=== PATIENT | male | born 1950 | race Caucasian/White ===

== ENCOUNTER 2016-11-28 09:23 | Emergency (ER) | payer OTHER ==
[2016-11-28 09:37] VITALS: BP 131/76; PULSE 71; RESP 16; TEMP 98.2; O2SAT 96
--- NOTE | 2016-11-28 10:02 | EDPHY ---
H & P Time Seen by Provider: 11/28/16 09:52 HPI/ROS: CHIEF COMPLAINT: Left hand laceration HISTORY OF PRESENT ILLNESS: 65-year-old male with up-to-date tetanus sustained accidental laceration to his left hand overlying the 4th MCP dorsal aspect when a piece of glass broke. Denies foreign body sensation. Occurred late last evening. No paresthesia. No motor deficit. PHYSICAL EXAM (Prior to examination, patient consented to physical exam, hands were washed and my usual and customary physical exam procedures followed) 1) GENERAL: Well-developed, well-nourished, alert and oriented. Appears to be in no acute distress. 2) HEAD: Normocephalic 3) HEENT: sclera anicteric 4) LUNGS: Breathing comfortably. 5) SKIN: left hand dorsal aspect overlying the 4th MCP 1.5 cm laceration well- demarcated superficial. 6) MUSCULOSKELETAL: extent function intact with no deficits 7) NEUROLOGIC: Full sensation two-point discrimination intact Constitutional: Initial Vital Signs Temperature (C) 36.8 C 11/28/16 09:32 Heart Rate 71 11/28/16 09:32 Respiratory Rate 16 11/28/16 09:32 Blood Pressure 131/76 H 11/28/16 09:32 O2 Sat (%) 96 11/28/16 09:32 O2 Delivery Mode Room Air Allergies/Adverse Reactions: No Known Allergies Allergy (Unverified 11/28/16 09:32) Home Medications: Medication Instructions Recorded NK [No Known Home Meds] 11/28/16 MDM/Departure - MDM Procedures: Procedure: Laceration repair. I explained the indications, risks and benefits for both laceration repair and anesthetic administration. Verbal consent was obtained from the patient . The laceration on the left hand was anesthetized using 0.5% bupivicaine with epinephrine . After anesthetic administered the patient was observed for a period of time and had no apparent adverse effects. The wound was cleaned, prepped, draped in normal sterile fashion and explored to its base. No foreign body seen, no foreign bodies palpated. There were no deep structures involved. No tendon injury was identified. The wound was repaired with 3 simple interrupted 5 O Prolene sutures. The wound repair was simple. The procedure was performed by myself. Patient has been informed that scarring will occur, although efforts have been made to minimize this. ED Course/Re-evaluation: This injury occurred from broken glass. I recommended x-ray to evaluate possible radiopaque foreign body. He declines this. He has been informed of the risks including, but not limited to, retained foreign body and nidus of infection. I believe him to have decision-making capacity. Wound has been cleansed, closed by myself. Usual and customary wound precautions instructions provided. - Depart Disposition: Home, Routine, Self-Care Clinical Impression: Laceration of left hand Qualifiers: Encounter type: initial encounter Foreign body presence: unspecified Qualified Code(s): S61.412A - Laceration without foreign body of left hand, initial encounter Condition: Good Instructions: Care For Your Stitches (ED), Laceration (ED) Additional Instructions: Return to the ER if you develop redness, swelling, discharge, warmth to the wound, red streaks going up your arm , or any other symptoms that concern you. You have declined an x-ray of your hand. He has been informed that a foreign body has not been ruled out and that this could serve as a source of infection. Referrals: Return, to the ER in 10 days [Other] - As per Instructions
== END 2016-11-28 10:50 | disposition home or self-care (01) ==
PROC: 0HQGXZZ Repair Left Hand Skin, External Approach (ICD-10-PCS; principal; 2016-11-28)
DX: S61.412A Laceration without foreign body of left hand, initial encounter (principal); W25.XXXA Contact with sharp glass, initial encounter